=== PATIENT | female | born 1940 | race Caucasian/White ===

== ENCOUNTER → 2017-05-27 | Outpatient (CLI) | payer MEDICARE, BC ==
--- NOTE | 2017-05-29 13:30 | RADIOLOGY REPORT (SQ) ---
EXAM DESCRIPTION: CT THORACIC SPINE WITHOUT COMPLETED DATE/TIME: 05/27/2017 10:42 am REASON FOR STUDY: PAIN IN THORACIC SPINE M54.6 PAIN IN THORACIC SPINE COMPARISON: CT chest 11/05/2014 CT abdomen pelvis 01/15/2016 Chest films 04/21/2016 TECHNIQUE: Axial images acquired through the thoracic spine without intravenous contrast. Images re viewed with lung, soft tissue and bone windows. Reconstructed coronal and sagittal MPR images review ed. Images stored on PACS. All CT scanners at this facility use dose modulation, iterative reconstruction, and/or weight based d osing when appropriate to reduce radiation dose to as low as reasonably achievable (ALARA). [facility]: Dose Right [facility]: CareDose [facility]: Dose Right [facility]: Teradose 4D [facility]: [employer] RADIATION DOSE: 13 mGy. LIMITATIONS: None. FINDINGS: VISUALIZED LUNGS: No acute opacities. No pneumothorax. SOFT TISSUES: No soft tissue swelling. No masses. Retrocardiac hiatal hernia with surgical clips. VERTEBRAL BODIES: Bones are osteopenic. No fractures. No dislocation. No acute findings. DISCS: There is disc space loss of height from T7-8 through T11-12. No significant posterior thoraci c spine intervertebral disc protrusion or central canal stenosis. ALIGNMENT: Normal. TRANSVERSE PROCESSES, POSTERIOR ELEMENTS: There is facet arthropathy at multiple levels, with moderat e right-sided foraminal narrowing from C3-4 through T10-11, and moderate left-sided foraminal narrowi ng from T6-7 through T9-10. HARDWARE: None in the spine. VISUALIZED RIBS: No acute fractures. OTHER: No other significant finding. IMPRESSION: Stable appearance of thoracic spine compared to CT chest 11/05/2014, with multilevel dege nerative disc changes and facet arthropathy. No acute wedge compression deformity or high-grade cent ral canal stenosis. Multilevel bilateral moderate foraminal narrowing as above TECHNICAL DOCUMENTATION: JOB ID: [id number] Quality ID # [id number]: Final reports with documentation of one or more dose reduction techniques (e.g., Au tomated exposure control, adjustment of the mA and/or kV according to patient size, use of iterative reconstruction technique) 2010 [employer]- All Rights Reserved
== END ==
LOC: RAD 10:28
PROVIDERS: ATTEND Orthopaedic Surgery
DX: M54.6 Pain in thoracic spine (principal)
CPT/HCPCS: 72128

== ENCOUNTER → 2018-01-10 | Outpatient (CLI) | payer MEDICARE, BC ==
--- NOTE | 2018-01-10 11:34 | RADIOLOGY REPORT (SQ) ---
EXAM DESCRIPTION: CT ABD/PELVIS ORAL ONLY COMPLETED DATE/TIME: 01/10/2018 10:47 am REASON FOR STUDY: NAUSEA/EPIGASTRIC PAIN R11.0 NAUSEA R10.13 EPIGASTRIC PAIN COMPARISON: 06/17/2015 TECHNIQUE: CT scan of the abdomen and pelvis performed without intravenous or oral contrast. Images reviewed with lung, soft tissue, and bone windows. Reconstructed coronal and sagittal MPR images revi ewed. All images stored on PACS. All CT scanners at this facility use dose modulation, iterative reconstruction, and/or weight based d osing when appropriate to reduce radiation dose to as low as reasonably achievable (ALARA). [facility]: Dose Right [facility]: CareDose [facility]: Dose Right [facility]: Teradose 4D [facility]: [employer] RADIATION DOSE: CT Rad equipment meets quality standard of care and radiation dose reduction techniq ues were employed. CTDIvol: 11.2 mGy. DLP: 648 mGy-cm.mGy. LIMITATIONS: None. FINDINGS: LOWER CHEST: No significant interval changes. Mild atelectasis or scar in the left lingul a and left lower lobe. NON-CONTRASTED LIVER, SPLEEN, ADRENALS: Evaluation limited by lack of IV contrast. No identified sign ificant masses. PANCREAS: No masses. No peripancreatic inflammatory changes. GALLBLADDER: No identified stones by CT criteria. No inflammatory changes to suggest cholecystitis. RIGHT KIDNEY AND URETER: No suspicious masses. Assessment limited by lack of IV contrast. No signif icant calcifications. No hydronephrosis or hydroureter. LEFT KIDNEY AND URETER: Stable left renal cyst. Assessment limited by lack of IV contrast. No sig nificant calcifications. No hydronephrosis or hydroureter. AORTA AND RETROPERITONEUM: Atherosclerotic changes involving the abdominal aorta and branch vessels. Left retro-aortic renal vein, normal anatomic variant. No aneurysm. No retroperitoneal masses or ad enopathy. BOWEL AND PERITONEAL CAVITY: Prior hiatal hernia repair. Constipation. No obvious masses or inflam matory changes. No free fluid. APPENDIX: Normal. PELVIS, BLADDER, AND ABDOMINAL WALL: Prior hysterectomy. Multiples small stable phleboliths in the pelvic region. Stable bilateral inguinal and small fat containing umbilical hernia. No free fluid. Bladder normal. BONES: Status post internal fixation of the left hip with three orthopedic screws identified, new fi nding since the prior examination. OTHER: No other significant finding. IMPRESSION: 1 No acute process in the abdomen or pelvis. 2. Additional findings as above. COMMENT: Quality ID # [id number]: Final reports with documentation of one or more dose reduction techniques (e.g., Automated exposure control, adjustment of the mA and/or kV according to patient size, use of iterative reconstruction technique) TECHNICAL DOCUMENTATION: JOB ID: [id number] [employer]- All Rights Reserved Reading location - IP/workstation name: [email or web address]
== END ==
LOC: RAD 10:13
PROVIDERS: ATTEND Family Medicine
DX: R11.0 Nausea (principal); R10.13 Epigastric pain; K40.20 Bilateral inguinal hernia, without obstruction or gangrene, not specified as recurrent; K59.00 Constipation, unspecified
CPT/HCPCS: 74176

== ENCOUNTER 2018-06-06 23:23 | Emergency (ER) | payer MEDICARE, BC ==
[2018-06-06] MEDS ORDERED: NORMAL SALINE 1000 ML 1,000 ML IV ONE (23:55)
[2018-06-06] MEDS ORDERED: DEXAMETHASONE SOD PHOS INJ 10 MG/1 ML VIAL IV ONE (23:55)
[2018-06-06] MEDS ORDERED: METOCLOPRAMIDE HCL INJ/PF 10 MG/2 ML SDV IV ONE (23:55)
[2018-06-06] MEDS ORDERED: METOCLOPRAMIDE HCL INJ/PF 10 MG/2 ML SDV ONE (23:56)
--- NOTE | 2018-06-06 23:57 | ER Document Report ---
ED General - General Chief Complaint: Nausea/Vomiting Stated Complaint: VOMITING Time Seen by Provider: 06/06/18 23:55 Notes: Patient is a 78 year old female with a past medical history of essential hypertension, severe headaches, who presents with 1 of her headaches. She describes this as a severe, stabbing pain to the bitemporal region of her scalp that started gradually approximately 3 hours ago and has gotten progressively worse since that time. She notes lights and sounds worsening headache. Nothing improves the headache. She has had history of similar headaches in the past that have been attributed to trigeminal neuralgia. She has not contacted her general doctor regarding today's concerns. She knows that she has had persistent vomiting since onset of headache but denies focal weakness, numbness , fever or altered mental status. TRAVEL OUTSIDE OF THE [place] IN LAST 30 DAYS: No - Related Data Allergies/Adverse Reactions: No Known Allergies Allergy (Verified 01/16/16 03:34) Past Medical History - General Information source: Patient - Social History Smoking Status: Never Smoker Frequency of alcohol use: None Drug Abuse: None Lives with: Spouse/Significant other Family History: Reviewed & Not Pertinent Patient has suicidal ideation: No Patient has homicidal ideation: No - Past Medical History Cardiac Medical History: Reports: Hx Atrial Fibrillation, Hx Hypercholesterolemia, Hx Hypertension Pulmonary Medical History: Reports: Hx Pneumonia - Pediatric Neurological Medical History: Reports: Hx Migraine Endocrine Medical History: Reports: Hx Hypothyroidism Renal/ Medical History: Denies: Hx Peritoneal Dialysis GI Medical History: Reports: Hx Gastroesophageal Reflux Disease, Hx Hiatal Hernia Musculoskeletal Medical History: Reports Hx Arthritis Psychiatric Medical History: Denies: Hx Depression Past Surgical History: Reports: Hx Abdominal Surgery - Gastric volvulus repair end of October 2014., Hx Genitourinary Surgery - Bladder tack, Hx Hysterectomy, Hx Tubal Ligation, Hx Vascular Surgery - Immunizations Immunizations up to date: Yes Hx Diphtheria, Pertussis, Tetanus Vaccination: Yes Hx Pneumococcal Vaccination: 07/11/10 Review of Systems - Review of Systems Notes: Constitutional: Negative for fever. HENT: Negative for sore throat. Eyes: Negative for visual changes. Cardiovascular: Negative for chest pain. Respiratory: Negative for shortness of breath. Gastrointestinal: Negative for abdominal pain, positive for nausea and vomiting Genitourinary: Negative for dysuria. Musculoskeletal: Negative for back pain. Skin: Negative for rash. Neurological: Positive for severe headache 10 point ROS negative except as marked above and in HPI. Physical Exam - Vital signs Vitals: Resp Pulse Ox 22 H 98 06/06/18 23:35 06/06/18 23:35 Interpretation: Hypertensive Notes: PHYSICAL EXAMINATION: GENERAL: Appears extremely uncomfortable, actively vomiting HEAD: Atraumatic, normocephalic. EYES: Pupils equal round and reactive to light, extraocular movements intact, sclera anicteric, conjunctiva are normal. ENT: nares patent, oropharynx clear without exudates. Moderately dry mucous membranes. NECK: Normal range of motion, supple without lymphadenopathy LUNGS: Breath sounds clear to auscultation bilaterally and equal. No wheezes rales or rhonchi. HEART: Regular tachycardia without murmurs ABDOMEN: Soft, nontender, normoactive bowel sounds. No guarding, no rebound. No masses appreciated. EXTREMITIES: Normal range of motion, no pitting or edema. No cyanosis. NEUROLOGICAL: Face symmetric. Tongue protrudes midline. Extraocular motions intact. Pupils are 2 mm and equally reactive. Normal speech, normal gait. 5 out of 5 strength in both the distal and proximal upper and lower extremities bilaterally. Sensation is grossly intact throughout. PSYCH: Moderately anxious SKIN: Warm, Dry, normal turgor, no rashes or lesions noted. Course - Re-evaluation Re-evalutation: 06/06/18 23:56 Patient presents with a relatively acute onset of a headache approximately 2-3 hours prior to arrival with associated persistent vomiting. No focal neurologic deficits on examination. She reports a history of similar symptoms in the past secondary to occipital neuralgia and states that this feels the same. However given her advanced age, initial severe hypertension, acuity of onset I believe that a CT of the head is warranted to exclude an acute subarachnoid hemorrhage. She is within the 6 hour window. IV metoclopramide, IV fluids and IV Dex medicine of also been initiated to treat her headache and nausea. Will reassess after CT imaging. 06/07/18 00:37 Patient has had improvement in her headache, no longer vomiting. CT of the head and labs are unremarkable. Will continue to monitor. 06/07/18 0100 Patient was continued to remain markedly improved, asymptomatic. Has tolerated oral intake without any difficulty. No further nausea or vomiting. At this time will discharge with return precautions and follow-up recommendations. Verbal discharge instructions given a the bedside and opportunity for questions given. Medication warnings reviewed. Patient is in agreement with this plan and has verbalized understanding of return precautions and the need for primary care follow-up in the next 24-72 hours. - Vital Signs Vital signs: Temp Pulse Resp BP Pulse Ox 98.9 F 77 13 160/74 H 96 06/07/18 01:01 06/06/18 23:36 06/07/18 01:01 06/07/18 01:01 06/07/18 01:01 - Laboratory Result Diagrams: 06/06/18 23:56 06/06/18 23:56 Laboratory results interpreted by me: 06/06/18 06/06/18 23:56 23:56 Hgb 16.4 H Hct 47.4 H RDW 14.1 H Potassium 3.3 L Carbon Dioxide 19 L Glucose 209 H - Diagnostic Test Radiology reviewed: Image reviewed, Reports reviewed Radiology results interpreted by me: 06/07/18 00:49 CT head: No acute intracranial bleed Discharge - Discharge Clinical Impression: Acute headache Qualifiers: Headache type: unspecified Intractability: not intractable Qualified Code(s): R51 - Headache Nausea and vomiting Qualifiers: Vomiting type: unspecified Vomiting Intractability: non-intractable Qualified Code(s): R11.2 - Nausea with vomiting, unspecified Hypertension Qualifiers: Hypertension type: unspecified Qualified Code(s): I10 - Essential (primary) hypertension Condition: Good Disposition: HOME, SELF-CARE Additional Instructions: You have been seen in the Emergency Department (ED) for a headache. Please use Tylenol (acetaminophen) or Motrin (ibuprofen) as needed for symptoms, but only as written on the box. As we have discussed, please follow up with your primary care doctor as soon as possible regarding today's ED visit and your headache symptoms. Call your doctor or return to the ED if you have a worsening headache, sudden and severe headache, confusion, slurred speech, facial droop, weakness or numbness in any arm or leg, extreme fatigue, or other symptoms that concern you. Referrals: AMINA DE LA FUENTE MD [Primary Care Provider] - Follow up as needed
[2018-06-07 00:02] LABS: ABSOLUTE LYMPHOCYTES (AUTO) 2.3 10^3/uL (0.5-4.7); ABSOLUTE MONOCYTES (AUTO) 0.5 10^3/uL (0.1-1.4); ABSOLUTE NEUT (AUTO) 5.5 10^3/uL (1.7-8.2); BASOPHILS % (AUTO) 0.5 % (0-2); EOSINOPHILS % (AUTO) 0.2 % (0-6); HEMATOCRIT 47.4 % (36.0-47.0); HEMOGLOBIN 16.4 g/dL (12.0-15.5); LYMPHOCYTES % (AUTO) 27.1 % (13-45); MEAN CORPUSCULAR HEMOGLOBIN 31.6 pg (27.0-33.4); MEAN CORPUSCULAR HGB CONC 34.6 g/dL (32.0-36.0); MEAN CORPUSCULAR VOLUME 92 fl (80-97); MONOCYTES % (AUTO) 6.3 % (3-13); PLATELET COUNT 177 10^3/uL (150-450); RED BLOOD COUNT 5.18 10^6/uL (3.72-5.28); RED CELL DISTRIBUTION WIDTH 14.1 % (11.5-14.0); SEGMENTED NEUTROPHILS % (AUTO) 65.9 % (42-78); TOTAL CELLS COUNTED % (AUTO) 100 %; WHITE BLOOD COUNT 8.4 10^3/uL (4.0-10.5)
[2018-06-07 00:09] LABS: ANION GAP 17 (5-19); BLOOD UREA NITROGEN 14 mg/dL (7-20); CALCIUM 9.6 mg/dL (8.4-10.2); CARBON DIOXIDE 19 mmol/L (22-30); CHLORIDE 103 mmol/L (98-107); GLUCOSE 209 mg/dL (75-110); POTASSIUM 3.3 mmol/L (3.6-5.0); SODIUM 138.5 mmol/L (137-145)
--- NOTE | 2018-06-07 00:22 | RADIOLOGY REPORT (SQ) ---
CT HEAD WITHOUT IV CONTRAST HISTORY: Headache. COMPARISON: 06/03/2014 TECHNIQUE: CT scan of the brain. This exam was performed according to our departmental dose-optimization program, which includes automated exposure control, adjustment of the mA and/or kV according to patient size and/or use of iterative reconstruction technique. FINDINGS: No intracranial hemorrhage. No midline shift, mass effect, or hydrocephalus. Schmidt-white matter differentiation is preserved without evidence of acute infarction. Complete opacification with diminution of the right maxillary sinus, suggesting chronic inflammatory disease. Calvarium is intact. IMPRESSION: No acute intracranial abnormality.
[2018-06-07] MEDS ORDERED: KETOROLAC TROMETHAMINE INJ/PF 30 MG/1 ML SDV IV ONE (00:36)
[2018-06-07 01:17] VITALS: BP 160/74
== END 2018-06-07 01:25 | disposition home or self-care (01) ==
LOC: ER 23:23
DX: R51 Headache (principal); R11.2 Nausea with vomiting, unspecified; I10 Essential (primary) hypertension; I48.91 Unspecified atrial fibrillation; E78.00 Pure hypercholesterolemia, unspecified; E03.9 Hypothyroidism, unspecified; Z90.710 Acquired absence of both cervix and uterus
CPT/HCPCS: 99284; 96361; 96374; 96375; 36415; 85025; 80048; 84484; 70450; J1885; J2765; J7030; J1100

== ENCOUNTER 2018-06-07 18:03 | Emergency (ER) | payer MEDICARE, BC ==
[2018-06-07] MEDS ORDERED: ONDANSETRON 4 MG TAB.RAPDIS PO ONE (19:37)
[2018-06-07] MEDS ORDERED: FENTANYL CITRATE INJ/PF 100 MCG/2 ML AMPUL IV ONE (19:37)
--- NOTE | 2018-06-07 19:39 | ER Document Report ---
ED Medical Screen (RME) - General Chief Complaint: Headache Stated Complaint: HEADACHE Time Seen by Provider: 06/07/18 19:26 Notes: RAPID MEDICAL EVALUATION DISCLOSURE I have seen this patient as part of a Rapid Medical Evaluation and, if applicable, placed any initially appropriate orders. The patient will be seen and fully evaluated, including a full history and physical exam, by a provider ( in Main ED or Fast Track) when a room becomes available. 78-year-old female seen here yesterday evening for headache back again with complaints of headache nausea vomiting. The headache is worse with light and sound. She received Benadryl via EMS and this did help tremendously, she reports but she still has a headache. She had migraines back in her 20s and they resolved until earlier this year. She has been prescribed Fioricet however has not taken any for her headaches. She denies any weakness numbness tingling. EXAM Cranial nerves grossly intact Strength 5/5 with intact sensation all extremities TRAVEL OUTSIDE OF THE [place] IN LAST 30 DAYS: No - Related Data Allergies/Adverse Reactions: No Known Allergies Allergy (Verified 01/16/16 03:34) Past Medical History - Social History Chew tobacco use (# tins/day): No Frequency of alcohol use: Rare Drug Abuse: None - Past Medical History Cardiac Medical History: Reports: Hx Atrial Fibrillation, Hx Hypercholesterolemia, Hx Hypertension Pulmonary Medical History: Reports: Hx Pneumonia - Pediatric Neurological Medical History: Reports: Hx Migraine Endocrine Medical History: Reports: Hx Hypothyroidism Renal/ Medical History: Denies: Hx Peritoneal Dialysis GI Medical History: Reports: Hx Gastroesophageal Reflux Disease, Hx Hiatal Hernia Musculoskeltal Medical History: Reports Hx Arthritis Psychiatric Medical History: Denies: Hx Depression Past Surgical History: Reports: Hx Abdominal Surgery - Gastric volvulus repair end of October 2014., Hx Genitourinary Surgery - Bladder tack, Hx Hysterectomy, Hx Tubal Ligation, Hx Vascular Surgery - Immunizations Immunizations up to date: Yes Hx Diphtheria, Pertussis, Tetanus Vaccination: Yes Physical Exam - Vital signs Vitals: Temp Pulse Resp BP Pulse Ox 98.1 F 72 20 161/73 H 98 06/07/18 18:12 06/07/18 18:12 06/07/18 18:12 06/07/18 18:12 06/07/18 18:12 Course - Vital Signs Vital signs: Temp Pulse Resp BP Pulse Ox 98.1 F 72 20 161/73 H 98 06/07/18 18:12 06/07/18 18:12 06/07/18 18:12 06/07/18 18:12 06/07/18 18:12 Doctor's Discharge - Discharge Referrals: AMINA DE LA FUENTE MD [Primary Care Provider] - Follow up as needed
[2018-06-07 19:49] LABS: ABSOLUTE LYMPHOCYTES (AUTO) 1.3 10^3/uL (0.5-4.7); ABSOLUTE MONOCYTES (AUTO) 0.3 10^3/uL (0.1-1.4); ABSOLUTE NEUT (AUTO) 9.7 10^3/uL (1.7-8.2); BASOPHILS % (AUTO) 0.1 % (0-2); HEMATOCRIT 46.1 % (36.0-47.0); HEMOGLOBIN 15.9 g/dL (12.0-15.5); LYMPHOCYTES % (AUTO) 11.2 % (13-45); MEAN CORPUSCULAR HEMOGLOBIN 31.5 pg (27.0-33.4); MEAN CORPUSCULAR HGB CONC 34.6 g/dL (32.0-36.0); MEAN CORPUSCULAR VOLUME 91 fl (80-97); MONOCYTES % (AUTO) 2.8 % (3-13); PLATELET COUNT 184 10^3/uL (150-450); RED BLOOD COUNT 5.06 10^6/uL (3.72-5.28); RED CELL DISTRIBUTION WIDTH 14.7 % (11.5-14.0); SEGMENTED NEUTROPHILS % (AUTO) 85.9 % (42-78); TOTAL CELLS COUNTED % (AUTO) 100 %; WHITE BLOOD COUNT 11.3 10^3/uL (4.0-10.5)
[2018-06-07 21:14] LABS: ANION GAP 12 (5-19); BLOOD UREA NITROGEN 14 mg/dL (7-20); CALCIUM 9.7 mg/dL (8.4-10.2); CARBON DIOXIDE 24 mmol/L (22-30); CHLORIDE 105 mmol/L (98-107); GLUCOSE 144 mg/dL (75-110); SODIUM 140.5 mmol/L (137-145)
[2018-06-07] MEDS ORDERED: PROCHLORPERAZINE EDISYLATE INJ 10 MG/2 ML VIAL IV ONE (22:39)
[2018-06-07] MEDS ORDERED: DIPHENHYDRAMINE HCL 50 MG/ML VIAL IV ONE (22:40)
--- NOTE | 2018-06-07 22:43 | ER Document Report ---
ED General - General Chief Complaint: Headache Stated Complaint: HEADACHE Time Seen by Provider: 06/07/18 19:26 TRAVEL OUTSIDE OF THE [place] IN LAST 30 DAYS: No - HPI Notes: 78-year-old female presents with headache. Patient has a history of chronic intermittent recurring headaches. Had migraines when she was younger and then about a year ago she had fallen and sustained an occipital hematoma has had headaches since then. She now describes bifrontal headache onset over the last day and a half. Gradual onset, nonradiating. She has had these in the past. Was seen yesterday evening received Reglan and Zofran but now continues to have persistent headache. No vomiting. Throbbing. No visual changes. No fever. No other modifying factors, no other associated symptoms, no other provocative or palliative factors. - Related Data Allergies/Adverse Reactions: No Known Allergies Allergy (Verified 01/16/16 03:34) Past Medical History - Social History Smoking Status: Former Smoker Chew tobacco use (# tins/day): No Frequency of alcohol use: Rare Drug Abuse: None Family History: Reviewed & Not Pertinent Patient has suicidal ideation: No Patient has homicidal ideation: No - Past Medical History Cardiac Medical History: Reports: Hx Atrial Fibrillation, Hx Hypercholesterolemia, Hx Hypertension Pulmonary Medical History: Reports: Hx Pneumonia - Pediatric Neurological Medical History: Reports: Hx Migraine Endocrine Medical History: Reports: Hx Hypothyroidism Renal/ Medical History: Denies: Hx Peritoneal Dialysis GI Medical History: Reports: Hx Gastroesophageal Reflux Disease, Hx Hiatal Hernia Musculoskeletal Medical History: Reports Hx Arthritis Psychiatric Medical History: Denies: Hx Depression Past Surgical History: Reports: Hx Abdominal Surgery - Gastric volvulus repair end of October 2014., Hx Genitourinary Surgery - Bladder tack, Hx Hysterectomy, Hx Tubal Ligation, Hx Vascular Surgery - Immunizations Immunizations up to date: Yes Hx Diphtheria, Pertussis, Tetanus Vaccination: Yes Hx Pneumococcal Vaccination: 07/11/10 Review of Systems - Review of Systems Notes: Review of systems as in the history of present illness, otherwise negative x 10 systems. Physical Exam - Vital signs Vitals: Temp Pulse Resp BP Pulse Ox 98.1 F 72 20 161/73 H 98 06/07/18 18:12 06/07/18 18:12 06/07/18 18:12 06/07/18 18:12 06/07/18 18:12 - Notes Notes: General: Well developed, well nourished. HEENT: Normocephalic, atraumatic. PEERL. No conjunctival injection. Neck: Supple, no significant adenopathy. No meningismus. Chest: Clear bilaterally, good air entry. Abdomen: Soft, non-tender, nondistended. Back: Non-tender. Normal ROM Extremities: No cyanosis, clubbing or edema. Vascular: Symmetric peripheral pulses, normal capillary refill. Skin: No significant rash. No petechiae or purpura. Motor: Normal tone and power. Symmetric. Neurologic: Alert and oriented to person place and time. Cranial nerves II-12 are intact. Sensation intact and symmetric in the upper and lower extremities. No cerebellar findings including finger-nose testing. No clonus. Gait normal. Funduscopic exam shows crisp disc margins, no evidence of papilledema. Course - Re-evaluation Re-evalutation: 06/07/18 22:42 78-year-old female with the after mentioned symptoms. Of note, it appears she had extensive workup yesterday including imaging. We will verify this but it all appears to be negative. This may be related underlying intermittent chronic headache, migraine. No evidence for intracranial emergency, doubt dural venous sinus thrombosis and no known hypercoagulability. Plan to proceed with Compazine, diphenhydramine. Fluids. She was seen by physician in triage and labs were ordered, I reviewed these and they are unremarkable. 06/07/18 23:43 Patient has had substantial improvement. Serial examination shows benign neurologic exam. Review of her records show unremarkable CT. Labs obtained today by the physician in triage are unremarkable. Is discharged home to follow close with primary care physician, return if worsening. - Vital Signs Vital signs: Temp Pulse Resp BP Pulse Ox 98.1 F 64 12 190/69 H 94 06/07/18 18:12 06/07/18 21:50 06/07/18 23:02 06/07/18 23:02 06/07/18 23:02 - Laboratory Result Diagrams: 06/07/18 17:35 06/07/18 20:41 Laboratory results interpreted by me: 06/07/18 06/07/18 17:35 20:41 WBC 11.3 H Hgb 15.9 H RDW 14.7 H Seg Neutrophils % 85.9 H Lymphocytes % 11.2 L Monocytes % 2.8 L Absolute Neutrophils 9.7 H Creatinine 0.50 L Glucose 144 H Discharge - Discharge Clinical Impression: Headache Qualifiers: Headache type: unspecified Headache chronicity pattern: acute headache Intractability: not intractable Qualified Code(s): R51 - Headache Condition: Good Disposition: HOME, SELF-CARE Referrals: AMINA DE LA FUENTE MD [Primary Care Provider] - Follow up as needed
[2018-06-08 01:12] VITALS: BP 163/63
== END 2018-06-08 01:36 | disposition home or self-care (01) ==
LOC: ER 18:03
DX: R51 Headache (principal); I10 Essential (primary) hypertension; Z87.820 Personal history of traumatic brain injury; Z86.69 Personal history of other diseases of the nervous system and sense organs; Z87.891 Personal history of nicotine dependence
CPT/HCPCS: 99283; 96374; 96375; 36415; 85025; 80048; J1200; A9270; J3010; J0780; S0119

== ENCOUNTER 2019-06-22 16:19 | Emergency (ER) | payer MEDICARE, BC ==
[2019-06-22 16:27] VITALS: BP 184/88
[2019-06-22] MEDS ORDERED: ACETAMINOPHEN 325 MG TABLET PO ONE (17:18)
[2019-06-22] MEDS ORDERED: ONDANSETRON HCL INJ/PF 4 MG/2 ML SDV IV ONE (17:18)
[2019-06-22] MEDS ORDERED: CLONIDINE HCL 0.2 MG TABLET PO ONE (17:19)
[2019-06-22] MEDS ORDERED: NORMAL SALINE 500 ML IV ONE (17:19)
--- NOTE | 2019-06-22 17:22 | ER Document Report ---
ED Medical Screen (RME) - General Chief Complaint: Blood Pressure Problem Stated Complaint: ELEVATED BLOOD PRESSURE Time Seen by Provider: 06/22/19 17:18 Primary Care Provider: BRANDIN GOMEZ MD [Primary Care Provider] - Follow up as needed Notes: 79-year-old female presents the ED for "headache from hell "high blood pressure of 187/105 nausea and dehydration. She states she has migraines and she is on gabapentin and metoprolol tartrate to reduce the number of headaches. She also has high blood pressure and is on multiple blood pressure medicines. She was seen and [place] yesterday and cardioversion was completed and she went to radiology oncology this morning he had a skin cancer radiated and they would not do it due to her blood pressure. She was sent to the emergency room from radiology oncology. Patient states she is on clonidine 0.2 that she takes at nighttime she is also on metoprolol losartan. She also has arthritis psoriasis Aurfmzq-Vedmh-Uqcyy syndrome and A. fib. He has severe migraine. She also has elevated cholesterol and blood pressure. I have greeted and performed a rapid initial assessment of this patient. A comprehensive ED assessment and evaluation of the patient, analysis of test results and completion of medical decision making process will be conducted by an additional ED providers. TRAVEL OUTSIDE OF THE [place] IN LAST 30 DAYS: No - Related Data Allergies/Adverse Reactions: No Known Allergies Allergy (Verified 01/16/16 03:34) Past Medical History - Social History Chew tobacco use (# tins/day): No Frequency of alcohol use: None Drug Abuse: None - Past Medical History Cardiac Medical History: Reports: Hx Atrial Fibrillation, Hx Hypercholesterolemia, Hx Hypertension Pulmonary Medical History: Reports: Hx Pneumonia - Pediatric Neurological Medical History: Reports: Hx Migraine Endocrine Medical History: Reports: Hx Hypothyroidism Renal/ Medical History: Denies: Hx Peritoneal Dialysis GI Medical History: Reports: Hx Gastroesophageal Reflux Disease, Hx Hiatal Hernia Musculoskeltal Medical History: Reports Hx Arthritis Psychiatric Medical History: Denies: Hx Depression Past Surgical History: Reports: Hx Abdominal Surgery - Gastric volvulus repair end of October 2014., Hx Genitourinary Surgery - Bladder tack, Hx Hysterectomy, Hx Tubal Ligation, Hx Vascular Surgery - Immunizations Immunizations up to date: Yes Hx Diphtheria, Pertussis, Tetanus Vaccination: Yes Physical Exam - Vital signs Vitals: Temp Pulse Resp BP Pulse Ox 97.5 F 70 18 184/88 H 96 06/22/19 16:26 06/22/19 16:26 06/22/19 16:26 06/22/19 16:26 06/22/19 16:26 Course - Vital Signs Vital signs: Temp Pulse Resp BP Pulse Ox 97.5 F 70 18 184/88 H 96 06/22/19 16:26 06/22/19 16:26 06/22/19 16:26 06/22/19 16:26 06/22/19 16:26 Doctor's Discharge - Discharge Referrals: BRANDIN GOMEZ MD [Primary Care Provider] - Follow up as needed
[2019-06-22 19:10] LABS: ABSOLUTE BASOPHILS # (AUTO) 0.1 10^3/uL (0.0-0.2); ABSOLUTE EOSINOPHILS # (AUTO) 0.1 10^3/uL (0.0-0.6); ABSOLUTE LYMPHOCYTES (AUTO) 2.2 10^3/uL (0.5-4.7); ABSOLUTE MONOCYTES (AUTO) 0.5 10^3/uL (0.1-1.4); ABSOLUTE NEUT (AUTO) 7.6 10^3/uL (1.7-8.2); BASOPHILS % (AUTO) 0.8 % (0-2); EOSINOPHILS % (AUTO) 1.2 % (0-6); HEMATOCRIT 42.4 % (36.0-47.0); HEMOGLOBIN 14.3 g/dL (12.0-15.5); LYMPHOCYTES % (AUTO) 20.7 % (13-45); MEAN CORPUSCULAR HGB CONC 33.7 g/dL (32.0-36.0); MEAN CORPUSCULAR VOLUME 95 fl (80-97); PLATELET COUNT 176 10^3/uL (150-450); RED BLOOD COUNT 4.47 10^6/uL (3.72-5.28); RED CELL DISTRIBUTION WIDTH 14.4 % (11.5-14.0); SEGMENTED NEUTROPHILS % (AUTO) 72.3 % (42-78); TOTAL CELLS COUNTED % (AUTO) 100 %; WHITE BLOOD COUNT 10.5 10^3/uL (4.0-10.5)
[2019-06-22 19:28] LABS: ALBUMIN 4.5 g/dL (3.5-5.0); ALKALINE PHOSPHATASE 95 U/L (38-126); ANION GAP 10 (5-19); ASPARTATE AMINO TRANSFERASE 33 U/L (14-36); BILIRUBIN,DIRECT 0.2 mg/dL (0.0-0.4); BILIRUBIN,TOTAL 0.7 mg/dL (0.2-1.3); BLOOD UREA NITROGEN 20 mg/dL (7-20); CALCIUM 10.2 mg/dL (8.4-10.2); CARBON DIOXIDE 29 mmol/L (22-30); CHLORIDE 101 mmol/L (98-107); GLUCOSE 114 mg/dL (75-110)
[2019-06-22 19:29] LABS: CREATINE KINASE 52 U/L (30-135); TOTAL PROTEIN 8.3 g/dL (6.3-8.2)
[2019-06-22 19:32] LABS: CREATINE KINASE MB 0.65 ng/mL (<4.55)
[2019-06-22 19:35] LABS: TROPONIN I < 0.012 ng/mL
== END 2019-06-23 00:21 | disposition left against medical advice (07) ==
LOC: ER 16:19
DX: I10 Essential (primary) hypertension (principal); R51 Headache; I48.91 Unspecified atrial fibrillation; E78.00 Pure hypercholesterolemia, unspecified; Z90.710 Acquired absence of both cervix and uterus
CPT/HCPCS: 99281; 36415; 82553; 82550; 85025; 80053; 84484; A9270

== ENCOUNTER → 2020-09-18 | Outpatient (CLI) | payer MEDICARE, BC ==
--- NOTE | 2020-09-18 15:16 | RADIOLOGY REPORT (SQ) ---
EXAM DESCRIPTION: VENOUS UNILATERAL LOWER IMAGES COMPLETED DATE/TIME: 09/18/2020 2:32 pm REASON FOR STUDY: RLE PAIN M79.604 PAIN IN RIGHT LEG COMPARISON: None. TECHNIQUE: Dynamic and static vasques scale and color images acquired of the right leg venous system. S elected spectral images acquired with additional compression and augmentation maneuvers. The contrala teral common femoral vein and saphenofemoral junction were also imaged. Images stored on PACS. LIMITATIONS: None. FINDINGS: COMMON FEMORAL: Normal phasicity, compression and augmentation. No visualized echogenic ma terial on vasques scale. No defects on color images. FEMORAL: Normal compression and augmentation. No visualized echogenic material on vasques scale. No defe cts on color images. POPLITEAL: Normal compression, augmentation. No visualized echogenic material on vasques scale. No defec ts on color images. CALF VESSELS: Normal compression, augmentation. No visualized echogenic material on vasques scale. No de fects on color images. GSV and SSV: Normal compression, augmentation. No visualized echogenic material on vasques scale. No def ects on color images. ANY DEEP VENOUS INSUFFICIENCY: Not evaluated. ANY EVIDENCE OF POPLITEAL CYST: No. OTHER: No other significant finding. CONTRALATERAL COMMON FEMORAL VEIN AND SAPHENOFEMORAL JUNCTION: Normal phasicity, compression and augmentation. No visualized echogenic material on vasques scale. No de fects on color images. IMPRESSION: NO EVIDENCE OF DVT OR SVT IN THE RIGHT LEG. TECHNICAL DOCUMENTATION: JOB ID: [id number] 2010 [employer]- All Rights Reserved Reading location - IP/workstation name: [email or web address]
== END ==
LOC: SP 12:35
PROVIDERS: ATTEND Physician Assistant
DX: M79.604 Pain in right leg (principal)
CPT/HCPCS: 93971